=== PATIENT | male | born 1970 ===

== ENCOUNTER 2022-04-25 01:11 | Emergency (ER) | payer OTHER, SELFPAY ==
[2022-04-25 01:27] VITALS: BP 119/80; PULSE 92; RESP 16; TEMP 36.9; O2SAT 99; BMI 23.5
[2022-04-25 02:43] VITALS: BP 123/74; PULSE 90; RESP 16; TEMP 37.2; O2SAT 98
[2022-04-25 03:03] LABS: MANUAL DIFF FLAG NO
[2022-04-25 03:06] LABS: Basophils Percent Auto 0.3 % (0-2); Eosinophils Absolute Auto 0.1 X10*3/uL (0.0-0.4); Eosinophils Percent Auto 1.8 % (0-4); Hematocrit 38.6 % (42.0-52.0); Hemoglobin 13.8 g/dl (14.0-18.0); Imm Gran Abs Auto 0.02 X10*3/uL (0.00-0.03); Imm Gran Pct Auto 0.3 % (0.0-0.4); Lymphocytes Absolute Auto 1.4 X10*3/uL (1.2-4.9); Lymphocytes Percent Auto 22.5 % (20-40); Mean Corpuscular HGB Conc 35.8 g/dl (31.0-36.0); Mean Corpuscular Hemoglobin 32.2 pg (27.0-33.0); Mean Platelet Volume 11.4 fL (9.4-12.4); Monocytes Absolute Auto 0.4 X10*3/uL (0.1-1.2); Monocytes Percent Auto 6.9 % (2-11); Neutrophils Absolute Auto 4.1 x10*3/uL (2.0-8.3); Neutrophils Percent Auto 68.2 % (45-73); Platelet Count 152 X10*3/uL (160-400); Red Blood Count 4.29 X10*6/uL (4.60-5.80); Red Cell Distribution Width 11.9 % (11.0-16.0); White Blood Count 6.1 X10*3/uL (4.8-10.8)
[2022-04-25 03:20] LABS: COVID-19 Test Negative (Negative); IDNOW Serial# 55D5AD1C
[2022-04-25 03:25] LABS: Troponin-I High Sensitivity < 3.5 ng/L (<3.5-35.0)
[2022-04-25 03:33] LABS: Anion Gap 16 (12-20); Blood Urea Nitrogen 18 mg/dL (9-16); Calcium 9.5 mg/dL (8.4-10.2); Carbon Dioxide 22 mmol/L (22-29); Chloride 100 mmol/L (96-108); Creatinine Clr Calc Pharmacy 62.1; Estimated Glomerular Filt Rate 58; Glucose Random 398 mg/dL (60-115); Potassium 4.1 mmol/L (3.3-5.1); Sodium 134 mmol/L (135-145)
[2022-04-25 04:15] VITALS: BP 125/76; PULSE 70; RESP 18; O2SAT 97
--- NOTE | 2022-04-25 05:59 | ED.CHESTPAIN ---
HPI - Chest Pain General Chief Complaint: Chest Pain Stated Complaint: Chest pain Time Seen by Provider: 04/25/22 05:59 Source: patient Mode of arrival: ambulatory Limitations: no limitations History of Present Illness HPI narrative: 51-year-old male who presents emergency department for evaluation of chest pain. The patient states that last night at 22:30 hours he was watching television when he had a gradual onset chest heaviness. He points to his anterior chest when asked to localize the pain. States the pain was worse if he pushes on his chest. He describes the pain is a constant heaviness which was 8/10 at its worst. He denied any radiation of the pain to his neck, jaw, arms or back. He states that he has chronic pain in his upper extremity secondary to diabetic neuropathy. He states that at the time of the onset of his pain he was also thinking about his sister in law who suddenly yesterday. He states that this sudden was very stressful on him and believes this may have triggered an anxiety attack. He did feel short of breath with the chest pain. He denied lightheadedness, dizziness, diaphoresis, nausea, or vomiting associated with the chest pain. complaint: chest pain Onset (ago): hour(s) (8 ) Timing of current episode: constant (Lasted 2-3 hours, resolve spontaneously in the emergency department) Prior episodes: Yes Onset: during rest and other (Onset while thinking about his [id number] the that occurred yesterday) Pain location: left chest and right chest Pain radiation: none Severity: severe Pain scale (0-10): 8 Quality: heaviness Relieving factors: nothing Exacerbating factors: other (Pushing on his chest) Risk Factors Coronary artery disease risk factors: diabetes and hyperlipidemia Related Data Allergies Allergy/AdvReac Type Severity Reaction Status Date / Time No Known Allergies Allergy Unverified 06/15/20 15:57 Review of Systems Review of Systems: Yes all other systems are reviewed and are negative [facility] Past Medical History [facility] Narrative: Past medical history: Diabetes mellitus, hyperlipidemia, diabetic neuropathy, depression, anxiety. Past surgical history left axilla abscess. Social history: He denies tobacco use. He occasionally drinks alcohol. He denies drug use. Social History Social History Advance Directives: No Advance Directives Information Provided: Yes Physical Exam Vital Signs: Vital Signs: Last Vital Signs Temp 98.9 F 04/25/22 02:43 Pulse 70 04/25/22 04:15 Resp 18 04/25/22 04:15 BP 125/76 04/25/22 04:15 Pulse Ox 97 04/25/22 04:15 O2 Del Method 04/25/22 04:15 BMI result Body Mass Index 23.5 Const: General: cooperative and no acute distress Orientation/consciousness: oriented to person and oriented to place Limitations: no limitations HEENT: Head: Yes normal to inspection, Yes normocephalic and Yes atraumatic Ears: external ears normal General nose exam: Normal external nose present Face and sinus: Yes normal facial exam Mouth: Normal oral and palatal mucosa present Throat: Yes posterior oropharynx normal Eyes: General: appearance normal, both eyes and all related structures Pupils: Equal, round and reactive pupils present Neck: Neck: Yes normal visual inspection, Yes no lymphadenopathy, Yes trachea midline and Yes supple Chest: Chest palpation & inspection: normal inspection of the chest and normal palpation of entire chest wall Resp: Effort & Inspection: normal respiratory effort and able to speak in complete sentences Auscultation: clear to auscultation bilaterally Cardio: Rate: regular rate Rhythm: regular rhythm Heart sounds: S1 normal heart sound present, S2 normal heart sound present and no murmurs GI: Inspection: Yes normal to inspection Palpation (GI): Soft to palpation, nontender and no guarding Auscultation: normal bowel sounds : General: Yes no CVA tenderness Back/Spine/Pelvis: Back: no CVA tenderness Skin: General skin exam: no rashes or lesions noted Neuro: General: oriented to person and oriented to place Cranial nerves: Yes CN's II-XII intact bilaterally and Yes Equal, round and reactive pupils present Cognition (Neuro): normal cognition Motor exam (neuro): 5/5 motor strength present throughout Extrem: General: Yes normal to inspection Psych: Appearance: grossly normal Speech and movement: Normal speech and movement present Affect: normal affect Attitude: cooperative Thought process: Normal thought process present Thought content: Normal thought content present Course Course Course Narrative: 51-year-old male who presents emergency department for evaluation of gradual onset of anterior chest pain that occurred at 23:00 hours while he was watching television and while he was also thinking about his [id number]'s sudden, unexpected that occurred yesterday. Patient's cardiac risk factors include diabetes and hyperlipidemia. Patient's pain lasted approximately 2-3 hours and resolved while he was waiting in the emergency department. Vital signs were unremarkable. Physical examination was unremarkable. Laboratory evaluation did reveal an elevated glucose of 398. The patient's high sensitivity troponin I was below detectable limits. Twelve EKG revealed a right bundle-branch block. At this time, I do not think that the patient's pain was caused by myocardial infarction/myocardial injury I did discuss this with him. The patient will be discharged home. He was advised to take his diabetic medications when he gets home and to monitor his point of care glucose throughout the day today. Is also advised to increase his fluid intake. MDM - Chest Pain Medical Records Data Attestation: I reviewed the patient's medical records. Lab Data Attestation: I reviewed the patient's lab results. Result diagrams: 04/25/22 02:58 04/25/22 02:58 Labs: Lab Results 04/25/22 04/25/22 04/25/22 Range/Units 02:58 02:58 02:58 WBC 6.1 (4.8-10.8) X10*3/uL RBC 4.29 L (4.60-5.80) X10*6/uL Hgb 13.8 L (14.0-18.0) g/dl Hct 38.6 L (42.0-52.0) % MCV 90.0 (80.0-98.0) fL MCH 32.2 (27.0-33.0) pg MCHC 35.8 (31.0-36.0) g/dl RDW 11.9 (11.0-16.0) % Plt Count 152 L (160-400) X10*3/uL MPV 11.4 (9.4-12.4) fL Immature Gran % (Auto) 0.3 (0.0-0.4) % Neut % (Auto) 68.2 (45-73) % Lymph % (Auto) 22.5 (20-40) % [place] % (Auto) 6.9 (2-11) % Eos % (Auto) 1.8 (0-4) % Baso % (Auto) 0.3 (0-2) % Lymph # (Auto) 1.4 (1.2-4.9) X10*3/uL [place] # (Auto) 0.4 (0.1-1.2) X10*3/uL Eos # (Auto) 0.1 (0.0-0.4) X10*3/uL Baso # (Auto) 0.0 (0.0-0.2) X10*3/uL Abs Immat Gran (auto) 0.02 (0.00-0.03) X10*3/uL Absolute Neuts (auto) 4.1 (2.0-8.3) x10*3/uL Absolute Nucleated RBC 0.000 (0.0-0.012) X10*3/uL Nucleated RBC % (auto) 0.0 (0.0-0.2) /100WBC Sodium 134 L (135-145) mmol/L Potassium 4.1 (3.3-5.1) mmol/L Chloride 100 (96-108) mmol/L Carbon Dioxide 22 (22-29) mmol/L Anion Gap 16 (12-20) BUN 18 H (9-16) mg/dL Creatinine 1.30 (0.5-1.4) mg/dL Estim Creat Clear Calc 62.1 Estimated GFR 58 Random Glucose 398 H* (60-115) mg/dL Calcium 9.5 (8.4-10.2) mg/dL Troponin I High Sens < 3.5 (<3.5-35.0) ng/L COVID-19 ([facility]) (Negative) COVID-19 Clin Com 04/25/22 Range/Units 02:58 WBC (4.8-10.8) X10*3/uL RBC (4.60-5.80) X10*6/uL Hgb (14.0-18.0) g/dl Hct (42.0-52.0) % MCV (80.0-98.0) fL MCH (27.0-33.0) pg MCHC (31.0-36.0) g/dl RDW (11.0-16.0) % Plt Count (160-400) X10*3/uL MPV (9.4-12.4) fL Immature Gran % (Auto) (0.0-0.4) % Neut % (Auto) (45-73) % Lymph % (Auto) (20-40) % [place] % (Auto) (2-11) % Eos % (Auto) (0-4) % Baso % (Auto) (0-2) % Lymph # (Auto) (1.2-4.9) X10*3/uL [place] # (Auto) (0.1-1.2) X10*3/uL Eos # (Auto) (0.0-0.4) X10*3/uL Baso # (Auto) (0.0-0.2) X10*3/uL Abs Immat Gran (auto) (0.00-0.03) X10*3/uL Absolute Neuts (auto) (2.0-8.3) x10*3/uL Absolute Nucleated RBC (0.0-0.012) X10*3/uL Nucleated RBC % (auto) (0.0-0.2) /100WBC Sodium (135-145) mmol/L Potassium (3.3-5.1) mmol/L Chloride (96-108) mmol/L Carbon Dioxide (22-29) mmol/L Anion Gap (12-20) BUN (9-16) mg/dL Creatinine (0.5-1.4) mg/dL Estim Creat Clear Calc Estimated GFR Random Glucose (60-115) mg/dL Calcium (8.4-10.2) mg/dL Troponin I High Sens (<3.5-35.0) ng/L COVID-19 ([facility]) Negative (Negative) COVID-19 Clin Com See Note ECG Data ECG #1: Attestation: I personally reviewed and interpreted this ECG as follows: Interpretation: 0117: Normal sinus rhythm with a rate of 90, normal IA interval, prolonged QRS duration of 134 milliseconds prolonged QTC duration of 484 milliseconds, right bundle-branch block, Q-wave in lead 3, inverted T-wave lead 2, no ST segment elevation, no ST segment depression, no PACs, no PVCs, no old EKG for comparison. Discharge Plan Discharge Clinical Impression: Chest pain Patient Disposition: Home, Self-Care Instructions: Chest Wall Pain (ED) Additional Instructions: Your laboratory evaluation revealed an elevated glucose (sugar) of 398. When you get home you should take your diabetes medications and monitor your glucose throughout the day today. You also increase your fluid intake and that should bring down your glucose. Your blood work was otherwise unremarkable. Your troponin (a marker of heart damage/heart attack) was below detectable limits which is reassuring. At this time, I do not think that your chest pain was secondary to heart attack but was more likely caused by pain in the muscles or joints of your chest. Also, I think that you may have had anxiety as well which major pain worse. Follow-up with your doctor in 2 days. Please return to the emergency department if your symptoms get worse or if you develop any symptoms that are concerning to you.
--- NOTE | 2022-04-25 14:27 | ECG_ITS ---
Test Reason : CHEST PAIN Blood Pressure : / mmHG Vent. Rate : 090 BPM Atrial Rate : 090 BPM P-R Int : 140 ms QRS Dur : 134 ms QT Int : 396 ms P-R-T Axes : 038 -69 016 degrees QTc Int : 484 ms Normal sinus rhythm Right bundle branch block Left anterior fascicular block Bifascicular block Abnormal ECG When compared with ECG of 11-MAY-2019 15:14, Right bundle branch block is now Present Referred By: Wilfredo Edmond Electronically Signed By:ERIK PANCHAL
== END 2022-04-25 06:31 | disposition home or self-care (01) ==
PROVIDERS: Emergency Provider Emergency Medicine Emergency Medical Services
DX: R07.89 Other chest pain (principal); Z20.822 Contact with and (suspected) exposure to COVID-19; Z79.899 Other long term (current) drug therapy
CPT/HCPCS: 36415; 80048; 84484; 85025; 87635; 93005; 99283; 99284

== ENCOUNTER 2022-11-07 14:56 | Emergency (ER) | payer OTHER, SELFPAY ==
--- NOTE | 2022-11-07 15:21 | ECG_ITS ---
Test Reason : not feeling well Blood Pressure : / mmHG Vent. Rate : 096 BPM Atrial Rate : 096 BPM P-R Int : 136 ms QRS Dur : 142 ms QT Int : 406 ms P-R-T Axes : 028 -69 034 degrees QTc Int : 512 ms Normal sinus rhythm Right bundle branch block Left anterior fascicular block Bifascicular block Abnormal ECG When compared with ECG of 25-APR-2022 01:17, No significant change was found Referred By: Mervin Mcpherson Electronically Signed By:AYO DE SANTIAGO MD
[2022-11-07 15:29] VITALS: BP 135/95; PULSE 97; RESP 18; TEMP 36.6; O2SAT 99; BMI 23.1
--- NOTE | 2022-11-07 15:32 | ED.GENADULT ---
HPI - General Adult General Chief complaint: General Medical <MORIS Dickerson - Last Filed: 11/07/22 15:34> Stated complaint: not feeling well pain r arm <MORIS Dickerson - Last Filed: 11/07/22 15:34> Time Seen by Provider: 11/07/22 23:04 <MORIS Dickerson - Last Filed: 11/07/22 15:34> Source: patient <Freddy Camarillo MD - Last Filed: 11/07/22 23:41> Mode of arrival: ambulatory <Freddy Camarillo MD - Last Filed: 11/07/22 23:41> Limitations: no limitations <Freddy Camarillo MD - Last Filed: 11/07/22 23:41> History of Present Illness HPI narrative: Patient diabetic comes in with nonspecific complaints for fecal say dizziness abdominal pain when he lays on the right side with chronic abdominal discomfort feels bloated all the time slight nausea no vomiting or diarrhea no fever or chills blood sugar well controlled patient does have increased anxiety, never had colonoscopy yet, Due in 01/19 worried about colon cancer <Freddy Camarillo MD - Last Filed: 11/07/22 23:41> Related Data Home medications: Previous Rx's Medication Instructions Recorded dicyclomine 20 mg tablet 20 mg PO TID PRN abdominal pain 11/07/22 #20 tabs lorazepam 1 mg tablet (Ativan) 1 mg PO BEDTIME PRN sleep #10 tabs 11/07/22 <MORIS Dickerson - Last Filed: 11/07/22 15:34> Allergies/adverse reactions: Allergies Allergy/AdvReac Type Severity Reaction Status Date / Time No Known Allergies Allergy Unverified 06/15/20 15:57 <MORIS Dickerson - Last Filed: 11/07/22 15:34> Review of Systems Review of Systems: Yes all other systems are reviewed and are negative <Freddy Camarillo MD - Last Filed: 11/07/22 23:41> PMFSH Social History Social History: Social History Alcohol intake: never Use of substances other than those prescribed or required for medical reasons: No Advance Directives: No Advance Directives Information Provided: No <MORIS Dickerson - Last Filed: 11/07/22 15:34> Physical Exam ED Vital Signs: Vital Signs - 24 hr 11/07/22 15:29 11/07/22 22:21 Temperature 97.9 F Pulse Rate 97 81 Respiratory Rate 18 18 Blood Pressure 135/95 H 140/82 H Pulse Oximetry 99 98 Oxygen Delivery Method Room Air Room Air BMI result Body Mass Index 23.1 <MORIS Dickerson - Last Filed: 11/07/22 15:34> Vital Signs - 24 hr 11/07/22 15:29 11/07/22 22:21 Temperature 97.9 F Pulse Rate 97 81 Respiratory Rate 18 18 Blood Pressure 135/95 H 140/82 H Pulse Oximetry 99 98 Oxygen Delivery Method Room Air Room Air BMI result Body Mass Index 23.1 <Freddy Camarillo MD - Last Filed: 11/07/22 23:41> Appearance: Alert. Oriented X3. No acute distress. Anxious Eyes: PERRLA, No Nystagmus ENT: Pharynx normal. Oral Mucosa moist Neck: Normal inspection. Neck supple. CVS: Normal heart rate and rhythm. Pulses normal. Respiratory: No respiratory distress. Equal air entry bilateral, no wheezing/rales/rhonchi Abdomen: Soft , mild tenderness diffuse Bowel sounds are present, no mass palpable, no CVA tenderness Skin: Skin warm and dry. Normal skin color. Normal skin turgor. Extremities: No lower extremity edema. No calf tenderness Neuro: Oriented X 3. No motor deficit. <Freddy Camarillo MD - Last Filed: 11/07/22 23:41> Course Course Course Narrative: This is an RME: Additional HPI, ROS, PE not included below will be deferred to primary provider. 52-year-old male presents with right arm pain, dizziness described as room spinning, abdominal pain, nausea times a few days worsening. Review of systems overwhelmingly positive. Physical examination benign. Neuro nonfocal. NIH stroke scale 0. Plan basic labs, orthostatic vital signs, dizziness <MORIS Dicekrson - Last Filed: 11/07/22 15:34> Medications Administered Discontinued Medications Generic Name Dose Route Start Last Admin Trade Name Freq PRN Reason Stop Dose Admin Dicyclomine HCl 20 mg 11/07/22 23:19 11/07/22 23:23 Dicyclomine Hcl 10 Mg Capsule PO 11/07/22 23:20 20 mg ONCE ONE Administration <MORIS Dickerson - Last Filed: 11/07/22 15:34> Medications Administered Discontinued Medications Generic Name Dose Route Start Last Admin Trade Name Freq PRN Reason Stop Dose Admin Dicyclomine HCl 20 mg 11/07/22 23:19 11/07/22 23:23 Dicyclomine Hcl 10 Mg Capsule PO 11/07/22 23:20 20 mg ONCE ONE Administration <Freddy Camarillo MD - Last Filed: 11/07/22 23:41> Medical Decision Making Medical Decision Making [facility] Narrative: Patient's anxiety with diffuse abdominal discomfort labs are stable likely diabetic gastroparesis discharge patient home on dicyclomine and Ativan for anxiety and sleep <Freddy Camarillo MD - Last Filed: 11/07/22 23:41> Lab Data [facility] Lab Attestation statement: I reviewed the patient's lab results. <Freddy Camarillo MD - Last Filed: 11/07/22 23:41> Result Diagrams: 11/07/22 16:13 11/07/22 16:13 <MORIS Dickerson - Last Filed: 11/07/22 15:34> Labs: Lab Results 11/07/22 11/07/22 11/07/22 Range/Units 16:13 16:13 16:13 WBC 5.1 (4.8-10.8) X10*3/uL RBC 5.10 (4.60-5.80) X10*6/uL Hgb 15.9 (14.0-18.0) g/dl Hct 46.3 (42.0-52.0) % MCV 90.8 (80.0-98.0) fL MCH 31.2 (27.0-33.0) pg MCHC 34.3 (31.0-36.0) g/dl RDW 12.0 (11.0-16.0) % Plt Count 150 L (160-400) X10*3/uL MPV 11.6 (9.4-12.4) fL Immature Gran % (Auto) 0.0 (0.0-0.4) % Neut % (Auto) 71.8 (45-73) % Lymph % (Auto) 19.0 L (20-40) % [place] % (Auto) 6.3 (2-11) % Eos % (Auto) 2.7 (0-4) % Baso % (Auto) 0.2 (0-2) % Lymph # (Auto) 1.0 L (1.2-4.9) X10*3/uL [place] # (Auto) 0.3 (0.1-1.2) X10*3/uL Eos # (Auto) 0.1 (0.0-0.4) X10*3/uL Baso # (Auto) 0.0 (0.0-0.2) X10*3/uL Abs Immat Gran (auto) 0.00 (0.00-0.03) X10*3/uL Absolute Neuts (auto) 3.7 (2.0-8.3) x10*3/uL Absolute Nucleated RBC 0.000 (0.0-0.012) X10*3/uL Nucleated RBC % (auto) 0.0 (0.0-0.2) /100WBC Sodium 145 (135-145) mmol/L Potassium 3.5 (3.3-5.1) mmol/L Chloride 107 (96-108) mmol/L Carbon Dioxide 26 (22-29) mmol/L Anion Gap 16 (12-20) BUN 24 H (9-16) mg/dL Creatinine 1.14 (0.5-1.4) mg/dL Estim Creat Clear Calc 67.6 Estimated GFR > 60 POC Glucose (60-115) mg/dL Random Glucose 202 H (60-115) mg/dL Calcium 8.7 D (8.4-10.2) mg/dL Magnesium 2.0 (1.6-2.6) mg/dL Total Bilirubin 0.8 (0.0-1.0) mg/dL AST 41 H (5-37) U/L ALT 91 H (0-40) U/L Alkaline Phosphatase 216 H (39-117) U/L Total Protein 6.9 (6.5-8.0) g/dL Albumin 4.2 (3.5-5.0) g/dL Lipase 16 (8-78) U/L COVID-19 ([facility]) Negative (Negative) COVID-19 Clin Com See Note 11/07/22 11/07/22 Range/Units 20:19 22:49 WBC (4.8-10.8) X10*3/uL RBC (4.60-5.80) X10*6/uL Hgb (14.0-18.0) g/dl Hct (42.0-52.0) % MCV (80.0-98.0) fL MCH (27.0-33.0) pg MCHC (31.0-36.0) g/dl RDW (11.0-16.0) % Plt Count (160-400) X10*3/uL MPV (9.4-12.4) fL Immature Gran % (Auto) (0.0-0.4) % Neut % (Auto) (45-73) % Lymph % (Auto) (20-40) % [place] % (Auto) (2-11) % Eos % (Auto) (0-4) % Baso % (Auto) (0-2) % Lymph # (Auto) (1.2-4.9) X10*3/uL [place] # (Auto) (0.1-1.2) X10*3/uL Eos # (Auto) (0.0-0.4) X10*3/uL Baso # (Auto) (0.0-0.2) X10*3/uL Abs Immat Gran (auto) (0.00-0.03) X10*3/uL Absolute Neuts (auto) (2.0-8.3) x10*3/uL Absolute Nucleated RBC (0.0-0.012) X10*3/uL Nucleated RBC % (auto) (0.0-0.2) /100WBC Sodium (135-145) mmol/L Potassium (3.3-5.1) mmol/L Chloride (96-108) mmol/L Carbon Dioxide (22-29) mmol/L Anion Gap (12-20) BUN (9-16) mg/dL Creatinine (0.5-1.4) mg/dL Estim Creat Clear Calc Estimated GFR POC Glucose 114 62 (60-115) mg/dL Random Glucose (60-115) mg/dL Calcium (8.4-10.2) mg/dL Magnesium (1.6-2.6) mg/dL Total Bilirubin (0.0-1.0) mg/dL AST (5-37) U/L ALT (0-40) U/L Alkaline Phosphatase (39-117) U/L Total Protein (6.5-8.0) g/dL Albumin (3.5-5.0) g/dL Lipase (8-78) U/L COVID-19 ([facility]) (Negative) COVID-19 Clin Com <MORIS Dickerson - Last Filed: 11/07/22 15:34> Lab Results 11/07/22 11/07/22 11/07/22 Range/Units 16:13 16:13 16:13 WBC 5.1 (4.8-10.8) X10*3/uL RBC 5.10 (4.60-5.80) X10*6/uL Hgb 15.9 (14.0-18.0) g/dl Hct 46.3 (42.0-52.0) % MCV 90.8 (80.0-98.0) fL MCH 31.2 (27.0-33.0) pg MCHC 34.3 (31.0-36.0) g/dl RDW 12.0 (11.0-16.0) % Plt Count 150 L (160-400) X10*3/uL MPV 11.6 (9.4-12.4) fL Immature Gran % (Auto) 0.0 (0.0-0.4) % Neut % (Auto) 71.8 (45-73) % Lymph % (Auto) 19.0 L (20-40) % [place] % (Auto) 6.3 (2-11) % Eos % (Auto) 2.7 (0-4) % Baso % (Auto) 0.2 (0-2) % Lymph # (Auto) 1.0 L (1.2-4.9) X10*3/uL [place] # (Auto) 0.3 (0.1-1.2) X10*3/uL Eos # (Auto) 0.1 (0.0-0.4) X10*3/uL Baso # (Auto) 0.0 (0.0-0.2) X10*3/uL Abs Immat Gran (auto) 0.00 (0.00-0.03) X10*3/uL Absolute Neuts (auto) 3.7 (2.0-8.3) x10*3/uL Absolute Nucleated RBC 0.000 (0.0-0.012) X10*3/uL Nucleated RBC % (auto) 0.0 (0.0-0.2) /100WBC Sodium 145 (135-145) mmol/L Potassium 3.5 (3.3-5.1) mmol/L Chloride 107 (96-108) mmol/L Carbon Dioxide 26 (22-29) mmol/L Anion Gap 16 (12-20) BUN 24 H (9-16) mg/dL Creatinine 1.14 (0.5-1.4) mg/dL Estim Creat Clear Calc 67.6 Estimated GFR > 60 POC Glucose (60-115) mg/dL Random Glucose 202 H (60-115) mg/dL Calcium 8.7 D (8.4-10.2) mg/dL Magnesium 2.0 (1.6-2.6) mg/dL Total Bilirubin 0.8 (0.0-1.0) mg/dL AST 41 H (5-37) U/L ALT 91 H (0-40) U/L Alkaline Phosphatase 216 H (39-117) U/L Total Protein 6.9 (6.5-8.0) g/dL Albumin 4.2 (3.5-5.0) g/dL Lipase 16 (8-78) U/L COVID-19 ([facility]) Negative (Negative) COVID-19 Clin Com See Note 11/07/22 11/07/22 Range/Units 20:19 22:49 WBC (4.8-10.8) X10*3/uL RBC (4.60-5.80) X10*6/uL Hgb (14.0-18.0) g/dl Hct (42.0-52.0) % MCV (80.0-98.0) fL MCH (27.0-33.0) pg MCHC (31.0-36.0) g/dl RDW (11.0-16.0) % Plt Count (160-400) X10*3/uL MPV (9.4-12.4) fL Immature Gran % (Auto) (0.0-0.4) % Neut % (Auto) (45-73) % Lymph % (Auto) (20-40) % [place] % (Auto) (2-11) % Eos % (Auto) (0-4) % Baso % (Auto) (0-2) % Lymph # (Auto) (1.2-4.9) X10*3/uL [place] # (Auto) (0.1-1.2) X10*3/uL Eos # (Auto) (0.0-0.4) X10*3/uL Baso # (Auto) (0.0-0.2) X10*3/uL Abs Immat Gran (auto) (0.00-0.03) X10*3/uL Absolute Neuts (auto) (2.0-8.3) x10*3/uL Absolute Nucleated RBC (0.0-0.012) X10*3/uL Nucleated RBC % (auto) (0.0-0.2) /100WBC Sodium (135-145) mmol/L Potassium (3.3-5.1) mmol/L Chloride (96-108) mmol/L Carbon Dioxide (22-29) mmol/L Anion Gap (12-20) BUN (9-16) mg/dL Creatinine (0.5-1.4) mg/dL Estim Creat Clear Calc Estimated GFR POC Glucose 114 62 (60-115) mg/dL Random Glucose (60-115) mg/dL Calcium (8.4-10.2) mg/dL Magnesium (1.6-2.6) mg/dL Total Bilirubin (0.0-1.0) mg/dL AST (5-37) U/L ALT (0-40) U/L Alkaline Phosphatase (39-117) U/L Total Protein (6.5-8.0) g/dL Albumin (3.5-5.0) g/dL Lipase (8-78) U/L COVID-19 ([facility]) (Negative) COVID-19 Clin Com <Freddy Camarillo MD - Last Filed: 11/07/22 23:41> Discharge Plan Discharge Clinical Impression: Diabetic gastroparesis, Anxiety <MORIS Dickerson - Last Filed: 11/07/22 15:34> Patient Disposition: Home, Self-Care <MORIS Dickerson - Last Filed: 11/07/22 15:34> Instructions: Diabetic Gastroparesis (DC), Anxiety (ED) <MORIS Dickerson - Last Filed: 11/07/22 15:34> Additional Instructions: Continue her diabetic medication as prescribed Dicyclomine for increased abdominal discomfort Follow-up with PCP <MORIS Dickerson - Last Filed: 11/07/22 15:34> Prescriptions: New dicyclomine 20 mg tablet 20 mg PO TID PRN (Reason: abdominal pain) Qty: 20 0RF lorazepam [Ativan] 1 mg tablet 1 mg PO BEDTIME PRN (Reason: sleep) Qty: 10 0RF <MORIS Dickerson - Last Filed: 11/07/22 15:34>
[2022-11-07 16:19] LABS: MANUAL DIFF FLAG NO
[2022-11-07 16:22] LABS: Basophils Percent Auto 0.2 % (0-2); Eosinophils Absolute Auto 0.1 X10*3/uL (0.0-0.4); Eosinophils Percent Auto 2.7 % (0-4); Hematocrit 46.3 % (42.0-52.0); Hemoglobin 15.9 g/dl (14.0-18.0); Mean Corpuscular HGB Conc 34.3 g/dl (31.0-36.0); Mean Corpuscular Hemoglobin 31.2 pg (27.0-33.0); Mean Corpuscular Volume 90.8 fL (80.0-98.0); Mean Platelet Volume 11.6 fL (9.4-12.4); Monocytes Absolute Auto 0.3 X10*3/uL (0.1-1.2); Monocytes Percent Auto 6.3 % (2-11); Neutrophils Absolute Auto 3.7 x10*3/uL (2.0-8.3); Neutrophils Percent Auto 71.8 % (45-73); Platelet Count 150 X10*3/uL (160-400); White Blood Count 5.1 X10*3/uL (4.8-10.8)
[2022-11-07 16:39] LABS: Alanine Aminotransferase 91 U/L (0-40); Albumin Level 4.2 g/dL (3.5-5.0); Alkaline Phosphatase 216 U/L (39-117); Anion Gap 16 (12-20); Aspartate Amino Transferase 41 U/L (5-37); Bilirubin Total 0.8 mg/dL (0.0-1.0); Blood Urea Nitrogen 24 mg/dL (9-16); Calcium 8.7 mg/dL (8.4-10.2); Carbon Dioxide 26 mmol/L (22-29); Chloride 107 mmol/L (96-108); Creatinine Clr Calc Pharmacy 67.6; Estimated Glomerular Filt Rate > 60; Glucose Random 202 mg/dL (60-115); Lipase 16 U/L (8-78); Potassium 3.5 mmol/L (3.3-5.1); Sodium 145 mmol/L (135-145); Total Protein 6.9 g/dL (6.5-8.0)
[2022-11-07 16:52] LABS: COVID-19 Test Negative (Negative); IDNOW Serial# BCCEAD1C
[2022-11-07 20:23] LABS: Glucose, Whole Blood 114 mg/dL (60-115)
[2022-11-07 22:21] VITALS: BP 140/82; PULSE 81; RESP 18; O2SAT 98
--- NOTE | 2022-11-07 22:50 | PC.NURSE ---
PT reports feeling low blood sugar, PO fluids and sandwich given.
[2022-11-07 22:53] LABS: Glucose, Whole Blood 62 mg/dL (60-115)
[2022-11-07] MEDS: Dicyclomine HCl 10 MG CAPSULE 20 MG PO (23:23)
== END 2022-11-07 23:45 | disposition home or self-care (01) ==
PROVIDERS: Physician Assistant; Emergency Provider Internal Medicine
DX: E11.43 Type 2 diabetes mellitus with diabetic autonomic (poly)neuropathy (principal); F41.9 Anxiety disorder, unspecified; Z20.822 Contact with and (suspected) exposure to COVID-19
CPT/HCPCS: 80053; 82947; 83690; 83735; 85025; 87635; 93005; 99283; 99284

== ENCOUNTER 2023-06-18 19:17 | Emergency (ER) | payer OTHER, SELFPAY ==
--- NOTE | ~2023-06-18 | XR_ITS ---
EXAMINATION: XR HIP, LEFT CLINICAL INFORMATION: Left hip pain. COMPARISON: CT abdomen/pelvis 02/05/2017. TECHNIQUE: Two views of the left hip. FINDINGS: No acute fracture or subluxation. Mild joint space narrowing, subcortical sclerosis and minimal spurring in the bilateral hips. Pelvic rim is maintained. SI joints are symmetric. Pelvic phleboliths are seen. No significant soft tissue abnormality. XR/XR hip LT w PEL1V IMPRESSION: 1. No acute fracture or subluxation. 2. Mild osteoarthritis of the bilateral hips.
[2023-06-18 19:56] VITALS: BP 128/73; PULSE 95; RESP 18; TEMP 37.3; O2SAT 97; BMI 25.0
--- NOTE | 2023-06-18 19:56 | ED_ITS ---
HPI - General Adult General Chief complaint: Back Pain/Injury Stated complaint: back pain, no injury Time Seen by Provider: 06/18/23 23:05 Source: patient, RN notes reviewed and old records reviewed Mode of arrival: ambulatory History of Present Illness HPI narrative: 52 year old M w/no sig PMHx c/o L hip pain radiating to L low back and down LLE x few weeks. Pain worse at night. Admits to ass[facility]. Denies injury/fall/trauma, incontinence/retention, fever, chills, hematuria, dysuria, abd pain. Onset (ago): day(s) Related Data Previous Rx's Medication Instructions Recorded dicyclomine 20 mg tablet 20 mg PO TID PRN abdominal pain 11/07/22 #20 tabs lorazepam 1 mg tablet (Ativan) 1 mg PO BEDTIME PRN sleep #10 tabs 11/07/22 acetaminophen 500 mg tablet 500 mg PO Q6H PRN fever or pain 06/18/23 (Tylenol Extra Strength) #14 tabs cyclobenzaprine 5 mg tablet 5 mg PO Q8H PRN pain (scale score 06/18/23 7-10) 5 days #14 tabs lidocaine 5 % topical patch 1 patch topical DAILY PRN pain #30 06/18/23 (Lidoderm) ea naproxen 500 mg tablet 500 mg PO BID PRN pain 10 days #20 06/18/23 tabs Allergies Allergy/AdvReac Type Severity Reaction Status Date / Time No Known Allergies Allergy Unverified 06/15/20 15:57 Review of Systems Review of Systems: Constitutional: No Fever, No Chills ENT/Mouth: No Ear Pain, No Nasal Congestion, No sore throat, No Rhinorrhea, No Swallowing Difficulty Cardiovascular: No Chest Pain, No SOB Respiratory: No Cough, No Sputum Gastrointestinal: No Nausea, No Vomiting, No Diarrhea, No Constipation, No Abdominal pain Genitourinary: No Dysuria, No Urinary Frequency, No Hematuria, No Urinary Incontinence/retention, No Flank Pain Musculoskeletal: + joint pain, No Myalgias, No Joint Swelling Skin: No Skin Lesions, No rash Neuro: No Weakness, No Numbness, No Paresthesias Yes all other systems are reviewed and are negative Constitutional: Constitutional: Reports as per HPI Neurologic: Denies Sensory deficit (Neuro) [facility] Past Medical History Attestation statement: The following information was validated with the patient. Source: old records reviewed Social History Social History Alcohol intake: never Advance Directives: No Advance Directives Information Provided: No Physical Exam ED Vital Signs: Vital Signs - 24 hr 06/18/23 19:56 06/18/23 21:32 06/18/23 23:44 Temperature 99.2 F 98.3 F 97.4 F Pulse Rate 95 78 77 Respiratory Rate 18 16 16 Blood Pressure 128/73 128/78 138/92 H Pulse Oximetry 97 98 97 Oxygen Delivery Method Room Air Room Air Room Air BMI result Body Mass Index 25.0 Const General: cooperative, healthy appearing and no acute distress Orientation/consciousness: patient oriented x3 Limitations: no limitations HENMT Head: Yes normal to inspection and Yes atraumatic Ears: hearing grossly normal bilaterally General nose exam: Normal external nose present Face and sinus: Yes normal facial exam Eyes General: appearance normal, both eyes and all related structures EOM: EOMs intact bilaterally Neck Neck: Yes normal visual inspection and Yes no meningeal signs Resp Effort & Inspection: normal respiratory effort and no respiratory distress Cardio Rate: regular rate Peripheral pulses: Peripheral pulses 2+ throughout GI Inspection: Yes normal to inspection Palpation (GI): Soft to palpation, nontender, no guarding and not rigid General: Yes no CVA tenderness Back/Spine/Pelvis Other: No midline cervical/thoracic/lumbar spinous tenderness/step-off or deformity. +L lower lumbar MSK/L hip ttp. Hip/pelvis w/o deformity. pelvis stable Back: no CVA tenderness Skin Rashes: no rashes Wounds: no wounds Neuro Other: Strength intact throughout. No saddle anesthesia. Sensation intact to light touch. Neurovascular intact distally General: patient oriented x3, gait normal, tone normal, moves all extremities and no meningeal signs Cranial nerves: Yes CN's II-XII intact bilaterally Gait exam (Neuro): Normal gait present Motor exam (neuro): 5/5 motor strength present throughout Sensory Exam: No Sensory deficit (Neuro) Extrem General: Yes normal to inspection Course Course Course Narrative: This is a rapid medical exam: Additional HPI, ROS, PE not included below will be deferred to primary provider. Patient is a 52-year-old male with history of DM presenting to the emergency department with complaint of pain which began in his leg one week ago, then 2 days ago began radiating to his left hip/lower back. Denies any fevers. Denies any fall or other trauma. Denies any urinary symptoms. Plan: x-ray hip/pelvis XR hip LT w PEL1V IMPRESSION: 1. No acute fracture or subluxation. 2. Mild osteoarthritis of the bilateral hips. Results discussed with patient including worrisome signs and symptoms and strict return precautions, and when to return to the emergency department. They verbalized understanding and feel safe for discharge at this time. Medications Administered Discontinued Medications Generic Name Dose Route Start Last Admin Trade Name Freq PRN Reason Stop Dose Admin Ketorolac Tromethamine 30 mg 06/18/23 23:27 06/18/23 23:39 Ketorolac Tromethamine 30 Mg/Ml Vial IM 06/18/23 23:28 30 mg ONCE ONE Administration Medical Decision Making Medical Decision Making MDM Narrative: 52 year old M w/no sig PMHx c/o L hip pain radiating to L low back and down LLE x few weeks. On exam VSS, NAD, nontoxic appearing, abdomen soft nontender, no midline spinous ttp, +L hip/L low back MSK ttp. No red flag sx. ambulating w/ steady gait. On exam vital signs stable, NAD, nontoxic appearing, no midline spinous tenderness throughout, nor thoughts symptoms, ambulating with steady gait. Concern for arthritis vs MSK pain/strain for sciatica or herniated disc. Unlikely fracture, cauda equina/cord compression, epidural abscess Plan: X-rays ordered in triage, pain control Please refer to course for remaining clinical decision making, interpretation of labs/imaging results, and discussions with consultants and/or family members. Differential Diagnosis Differential Diagnoses: The differential diagnosis associated with the presentation includes As above Radiology Impression Discussion of test interpretation with radiology: I have reviewed the radiologist's reading. External Record Review External record reviewed: Inpatient record, Office record, Outpatient record, Prior outpatient labs, Prior outpatient radiology, Primary care record and Outside ED record Tests considered The following testing was considered but not selected: As above Prescription Management I considered prescription management with: Pain Medication Discharge Plan Discharge Clinical Impression: Sciatica, Hip osteoarthritis Patient Disposition: Home, Self-Care Instructions: Osteoarthritis (DC), Sciatica (ED) Additional Instructions: your x-ray shows osteoarthritis of your hips Your pain is likely musculoskeletal Flexeril is a muscle relaxer, take at night as it makes you drowsy, do not drive, drink alcohol, or operate machinery while taking it Naproxen as an anti-inflammatory / pain medication, take with food Lidoderm patches are numbing patches, apply to painful area In addition take Tylenol at home If symptoms persist or worsen, pain becomes unbearable, you developed urinary retention or incontinence, or weakness return to the ED Prescriptions: New acetaminophen [Tylenol Extra Strength] 500 mg tablet 500 mg PO Q6H PRN (Reason: fever or pain) Qty: 14 0RF lidocaine [Lidoderm] 5 % adhesive patch,medicated 1 patch topical DAILY MDD remove after 12 hours PRN (Reason: pain) Qty: 30 0RF Rx Instructions: leave on most painful area for up to 12 hrs naproxen 500 mg tablet 500 mg PO BID PRN (Reason: pain) 10 Days Qty: 20 0RF cyclobenzaprine 5 mg tablet 5 mg PO Q8H PRN (Reason: pain (scale score 7-10)) 5 Days Qty: 14 0RF No Action dicyclomine 20 mg tablet 20 mg PO TID PRN (Reason: abdominal pain) Qty: 20 0RF lorazepam [Ativan] 1 mg tablet 1 mg PO BEDTIME PRN (Reason: sleep) Qty: 10 0RF Referrals: Physician,Unknown J [Primary Care Provider] - Interventions: ED Discharge Assessment Last Done: 06/18/23 23:45 Discharge Date/Time: 06/18/23 23:46
[2023-06-18 21:32] VITALS: BP 128/78; PULSE 78; RESP 16; TEMP 36.8; O2SAT 98
[2023-06-18] MEDS: Ketorolac Tromethamine 30 MG/ML VIAL IM (23:39)
[2023-06-18 23:44] VITALS: BP 138/92; PULSE 77; RESP 16; TEMP 36.3; O2SAT 97
== END 2023-06-18 23:46 | disposition home or self-care (01) ==
PROVIDERS: Emergency Provider Emergency Medicine
DX: M54.42 Lumbago with sciatica, left side (principal); M25.552 Pain in left hip; Z79.899 Other long term (current) drug therapy
CPT/HCPCS: 73502; 96372; 99283; 99284; J1885

== ENCOUNTER 2023-07-04 22:20 | Emergency (ER) | payer OTHER, SELFPAY ==
[2023-07-04 22:26] VITALS: BP 140/94; PULSE 88; RESP 16; O2SAT 99; BMI 28.0
[2023-07-04 22:49] VITALS: BP 157/92; PULSE 72; RESP 19; O2SAT 95
--- NOTE | 2023-07-04 22:54 | PC.NURSE ---
Pt brought in by unresponsive, diaphoretic, POC 24. #18 iv placed in L-ac,pt given d50, repeat glucose 198. Pt started vomiting, turned on side, becoming more arousable asking for . at bedside, bed change completed, pt sat up in bed. VSS at this time. Repeat poc at 2300
--- NOTE | 2023-07-04 22:59 | ED.GENADULT ---
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 As per the patient is diabetic and took approximately 40 units of Lantus prior to leaving the house and going to a [place]. The thinks that he may have consumed alcohol there but denies patient engages in drug use, she states that others at the [facility] called her to say that he did not look well. Related Data Previous Rx's Medication Instructions Recorded dicyclomine 20 mg tablet 20 mg PO TID PRN abdominal pain 11/07/22 #20 tabs lorazepam 1 mg tablet (Ativan) 1 mg PO BEDTIME PRN sleep #10 tabs 11/07/22 acetaminophen 500 mg tablet 500 mg PO Q6H PRN fever or pain 06/18/23 (Tylenol Extra Strength) #14 tabs cyclobenzaprine 5 mg tablet 5 mg PO Q8H PRN pain (scale score 06/18/23 7-10) 5 days #14 tabs lidocaine 5 % topical patch 1 patch topical DAILY PRN pain #30 06/18/23 (Lidoderm) ea naproxen 500 mg tablet 500 mg PO BID PRN pain 10 days #20 06/18/23 tabs Allergies Allergy/AdvReac Type Severity Reaction Status Date / Time No Known Allergies Allergy Verified 07/04/23 22:26 Review of Systems Review of Systems: Yes Unobtainable due to mental condition PMFSH Past Medical History Source: nursing notes reviewed Social History Social History Alcohol intake: current Use of substances other than those prescribed or required for medical reasons: No Advance Directives: No Advance Directives Information Provided: Yes Physical Exam ED Vital Signs: Vital Signs - 24 hr 07/04/23 22:26 07/04/23 22:49 07/04/23 23:20 Temperature 97.7 F Pulse Rate 88 72 Respiratory Rate 16 19 Blood Pressure 140/94 H 157/92 H Pulse Oximetry 99 95 Oxygen Delivery Method Room Air Room Air 07/05/23 00:44 07/05/23 01:57 Temperature 94.5 F L 98.0 F Pulse Rate 77 75 Respiratory Rate 16 16 Blood Pressure 163/92 H 136/82 Pulse Oximetry 95 97 Oxygen Delivery Method Room Air BMI result Body Mass Index 28.0 VITAL SIGNS: Reviewed. GENERAL: Well developed, well nourished, in no acute distress. HEAD: Normocephalic/atraumatic EYES: PERRLA, EOMI EARS: Ext canals without abnormality, TMs non-bulging and non-erythematous NOSE: Nares patent bilateral OROPHARYNX: no oral lesions noted NECK: Supple, no adenopathy LUNGS: Normal breath sounds. No adventitious sounds or accessory muscle use. SpO2<97> CARDIOVASCULAR: Regular rate and rhythm without noted murmurs ABDOMEN: Soft, non-tender, non-distended with bowel sounds. MUSCULOSKELETAL: No tenderness, deformities, or effusions noted on gross inspection. EXTREMITIES: No cyanosis, clubbing or edema. SKIN: Inspection of the skin reveals no rashes, ulcerations, jaundice, pallor, or petechiae. NEUROLOGIC: Unresponsive. Strength and sensation to light touch were grossly intact x 4. Medications Administered Discontinued Medications Generic Name Dose Route Start Last Admin Trade Name Freq PRN Reason Stop Dose Admin Dextrose 25 gm 07/05/23 00:40 07/05/23 02:35 Dextrose 50 % 25 Gm/50 Ml Syringe IVPUSH 07/05/23 00:41 25 gm ONCE ONE Administration Sodium Chloride 1,000 mls @ 999 mls/hr 07/04/23 23:45 07/05/23 00:12 Ns IV 07/05/23 00:45 999 mls/hr .Q1H1M RAUL Administration Ondansetron HCl 4 mg 07/04/23 22:38 07/04/23 22:45 Ondansetron Hcl 4 Mg/2 Ml Vial IVPUSH 07/04/23 22:39 4 mg ONCE ONE Administration Medical Decision Making Medical Decision Making MDM Narrative: 52-year-old male with history and clinical presentation, DDX: Accidental insulin overdose, ETOH/drug use, infection-anemia INTERVENTION: IV access and D 50 Patient responded well to the D 50 but had episode of vomiting. Patient received 1 L of IV fluids as well as Zofran. I reviewed all other investigations and hematologic indices are negative for leukocytosis there is a left shift and chronically stable thrombocytopenia without anemia. VBG does not demonstrate any respiratory acidosis there is a mild hypercapnia which is likely associated with patient's decrease in responsiveness due to hypoglycemia. Chemistry indices negative for ELLY and liver enzymes are grossly within normal limits all others a slight bump in ALT. There is a noted hypokalemia of 2.8 with normal magnesium level, this was repleted with 60 mEq of potassium chloride orally. Urinalysis negative for UTI or hematuria and UDS negative, ethanol undetectable. Serial point of care glucoses demonstrated initial response to the D50 and then a slight decrease, patient was offered oral intake and was able to tolerate some juice and crackers and maintained a sugar of 100 at approximately 02:00 and continues to maintain 100 at 03:15. At this time I think that patient is stable for discharge to home with strict precautions that have been communicated with the to monitor patient for lethargy and unresponsiveness. Differential Diagnosis Differential Diagnoses: The differential diagnosis associated with the presentation includes Please see the discussion above Admission/Observation Consideration of admission/observation: Escalation of care including admission/observation considered Please see the discussion above Lab Data MDM Lab Attestation statement: I reviewed the patient's lab results. Please see the discussion above 07/04/23 22:41 07/04/23 22:41 Labs: Lab Results 07/04/23 07/04/23 07/04/23 Range/Units 22:22 22:30 22:41 WBC 9.4 (4.8-10.8) X10*3/uL RBC 4.51 L (4.60-5.80) X10*6/uL Hgb 14.4 (14.0-18.0) g/dl Hct 41.8 L (42.0-52.0) % MCV 92.7 (80.0-98.0) fL MCH 31.9 (27.0-33.0) pg MCHC 34.4 (31.0-36.0) g/dl RDW 12.5 (11.0-16.0) % Plt Count 143 L (160-400) X10*3/uL MPV 11.5 (9.4-12.4) fL Immature Gran % (Auto) 0.4 (0.0-0.4) % Neut % (Auto) 82.1 H (45-73) % Lymph % (Auto) 10.0 L (20-40) % [place] % (Auto) 6.7 (2-11) % Eos % (Auto) 0.6 (0-4) % Baso % (Auto) 0.2 (0-2) % Lymph # (Auto) 0.9 L (1.2-4.9) X10*3/uL [place] # (Auto) 0.6 (0.1-1.2) X10*3/uL Eos # (Auto) 0.1 (0.0-0.4) X10*3/uL Baso # (Auto) 0.0 (0.0-0.2) X10*3/uL Abs Immat Gran (auto) 0.04 H (0.00-0.03) X10*3/uL Absolute Neuts (auto) 7.7 (2.0-8.3) x10*3/uL Absolute Nucleated RBC 0.000 (0.0-0.012) X10*3/uL Nucleated RBC % (auto) 0.0 (0.0-0.2) /100WBC VBG pH (7.32-7.43) VBG pCO2 mmHg VBG pO2 mmHg VBG HCO3 (22-26) mmol/L VBG O2 Saturation % VBG Base Excess mmol/L Sodium 140 (135-145) mmol/L Potassium 2.8 L (3.3-5.1) mmol/L Chloride 104 (96-108) mmol/L Carbon Dioxide 24 (22-29) mmol/L Anion Gap 15 (12-20) BUN 20 H (9-16) mg/dL Creatinine 1.15 (0.5-1.4) mg/dL Estim Creat Clear Calc 70.8 Estimated GFR > 60 POC Glucose 24 L* 198 H (60-115) mg/dL Random Glucose 231 H (60-115) mg/dL Calcium 8.9 (8.4-10.2) mg/dL Magnesium 2.2 (1.6-2.6) mg/dL Total Bilirubin 0.4 (0.0-1.0) mg/dL AST 30 (5-37) U/L ALT 50 H (0-40) U/L Alkaline Phosphatase 65 (39-117) U/L Total Protein 7.3 (6.5-8.0) g/dL Albumin 4.2 (3.5-5.0) g/dL Urine Color Urine Appearance Urine pH (5.0-9.0) Ur Specific [place] (1.005-1.025) Urine Protein (Neg-Trace) mg/dL Urine Glucose (UA) (Negative) mg/dL Urine Ketones (Negative) mg/dL Urine Blood (Negative) Urine Nitrite (Negative) Ur Leukocyte Esterase (Negative) Urine RBC (0-2) /HPF Urine WBC (0-5) /HPF Ur Squamous Epith Cells (0-2) /HPF Urine Bacteria (None Seen) Hyaline Casts (0-2) /LPF Urine Opiates Screen (Not Detect) Urine Fentanyl Screen (Not Detect) Ur Barbiturates Screen (Not Detect) Ur Phencyclidine Scrn (Not Detect) Ur Amphetamines Screen (Not Detect) U Benzodiazepines Scrn (Not Detect) Urine Cocaine Screen (Not Detect) U Marijuana (THC) Screen (Not Detect) Ethyl Alcohol < 10 mg/dL 07/04/23 07/04/23 07/04/23 Range/Units 22:44 23:03 23:48 WBC (4.8-10.8) X10*3/uL RBC (4.60-5.80) X10*6/uL Hgb (14.0-18.0) g/dl Hct (42.0-52.0) % MCV (80.0-98.0) fL MCH (27.0-33.0) pg MCHC (31.0-36.0) g/dl RDW (11.0-16.0) % Plt Count (160-400) X10*3/uL MPV (9.4-12.4) fL Immature Gran % (Auto) (0.0-0.4) % Neut % (Auto) (45-73) % Lymph % (Auto) (20-40) % [place] % (Auto) (2-11) % Eos % (Auto) (0-4) % Baso % (Auto) (0-2) % Lymph # (Auto) (1.2-4.9) X10*3/uL [place] # (Auto) (0.1-1.2) X10*3/uL Eos # (Auto) (0.0-0.4) X10*3/uL Baso # (Auto) (0.0-0.2) X10*3/uL Abs Immat Gran (auto) (0.00-0.03) X10*3/uL Absolute Neuts (auto) (2.0-8.3) x10*3/uL Absolute Nucleated RBC (0.0-0.012) X10*3/uL Nucleated RBC % (auto) (0.0-0.2) /100WBC VBG pH 7.38 (7.32-7.43) VBG pCO2 49 mmHg VBG pO2 56 mmHg VBG HCO3 29 H (22-26) mmol/L VBG O2 Saturation 83.0 % VBG Base Excess 3.7 mmol/L Sodium (135-145) mmol/L Potassium (3.3-5.1) mmol/L Chloride (96-108) mmol/L Carbon Dioxide (22-29) mmol/L Anion Gap (12-20) BUN (9-16) mg/dL Creatinine (0.5-1.4) mg/dL Estim Creat Clear Calc Estimated GFR POC Glucose 135 H 87 (60-115) mg/dL Random Glucose (60-115) mg/dL Calcium (8.4-10.2) mg/dL Magnesium (1.6-2.6) mg/dL Total Bilirubin (0.0-1.0) mg/dL AST (5-37) U/L ALT (0-40) U/L Alkaline Phosphatase (39-117) U/L Total Protein (6.5-8.0) g/dL Albumin (3.5-5.0) g/dL Urine Color Urine Appearance Urine pH (5.0-9.0) Ur Specific [place] (1.005-1.025) Urine Protein (Neg-Trace) mg/dL Urine Glucose (UA) (Negative) mg/dL Urine Ketones (Negative) mg/dL Urine Blood (Negative) Urine Nitrite (Negative) Ur Leukocyte Esterase (Negative) Urine RBC (0-2) /HPF Urine WBC (0-5) /HPF Ur Squamous Epith Cells (0-2) /HPF Urine Bacteria (None Seen) Hyaline Casts (0-2) /LPF Urine Opiates Screen (Not Detect) Urine Fentanyl Screen (Not Detect) Ur Barbiturates Screen (Not Detect) Ur Phencyclidine Scrn (Not Detect) Ur Amphetamines Screen (Not Detect) U Benzodiazepines Scrn (Not Detect) Urine Cocaine Screen (Not Detect) U Marijuana (THC) Screen (Not Detect) Ethyl Alcohol mg/dL 07/05/23 07/05/23 07/05/23 Range/Units 00:38 01:11 01:56 WBC (4.8-10.8) X10*3/uL RBC (4.60-5.80) X10*6/uL Hgb (14.0-18.0) g/dl Hct (42.0-52.0) % MCV (80.0-98.0) fL MCH (27.0-33.0) pg MCHC (31.0-36.0) g/dl RDW (11.0-16.0) % Plt Count (160-400) X10*3/uL MPV (9.4-12.4) fL Immature Gran % (Auto) (0.0-0.4) % Neut % (Auto) (45-73) % Lymph % (Auto) (20-40) % [place] % (Auto) (2-11) % Eos % (Auto) (0-4) % Baso % (Auto) (0-2) % Lymph # (Auto) (1.2-4.9) X10*3/uL [place] # (Auto) (0.1-1.2) X10*3/uL Eos # (Auto) (0.0-0.4) X10*3/uL Baso # (Auto) (0.0-0.2) X10*3/uL Abs Immat Gran (auto) (0.00-0.03) X10*3/uL Absolute Neuts (auto) (2.0-8.3) x10*3/uL Absolute Nucleated RBC (0.0-0.012) X10*3/uL Nucleated RBC % (auto) (0.0-0.2) /100WBC VBG pH (7.32-7.43) VBG pCO2 mmHg VBG pO2 mmHg VBG HCO3 (22-26) mmol/L VBG O2 Saturation % VBG Base Excess mmol/L Sodium (135-145) mmol/L Potassium (3.3-5.1) mmol/L Chloride (96-108) mmol/L Carbon Dioxide (22-29) mmol/L Anion Gap (12-20) BUN (9-16) mg/dL Creatinine (0.5-1.4) mg/dL Estim Creat Clear Calc Estimated GFR POC Glucose 61 73 100 (60-115) mg/dL Random Glucose (60-115) mg/dL Calcium (8.4-10.2) mg/dL Magnesium (1.6-2.6) mg/dL Total Bilirubin (0.0-1.0) mg/dL AST (5-37) U/L ALT (0-40) U/L Alkaline Phosphatase (39-117) U/L Total Protein (6.5-8.0) g/dL Albumin (3.5-5.0) g/dL Urine Color Urine Appearance Urine pH (5.0-9.0) Ur Specific [place] (1.005-1.025) Urine Protein (Neg-Trace) mg/dL Urine Glucose (UA) (Negative) mg/dL Urine Ketones (Negative) mg/dL Urine Blood (Negative) Urine Nitrite (Negative) Ur Leukocyte Esterase (Negative) Urine RBC (0-2) /HPF Urine WBC (0-5) /HPF Ur Squamous Epith Cells (0-2) /HPF Urine Bacteria (None Seen) Hyaline Casts (0-2) /LPF Urine Opiates Screen (Not Detect) Urine Fentanyl Screen (Not Detect) Ur Barbiturates Screen (Not Detect) Ur Phencyclidine Scrn (Not Detect) Ur Amphetamines Screen (Not Detect) U Benzodiazepines Scrn (Not Detect) Urine Cocaine Screen (Not Detect) U Marijuana (THC) Screen (Not Detect) Ethyl Alcohol mg/dL 07/05/23 07/05/23 Range/Units 02:15 03:15 WBC (4.8-10.8) X10*3/uL RBC (4.60-5.80) X10*6/uL Hgb (14.0-18.0) g/dl Hct (42.0-52.0) % MCV (80.0-98.0) fL MCH (27.0-33.0) pg MCHC (31.0-36.0) g/dl RDW (11.0-16.0) % Plt Count (160-400) X10*3/uL MPV (9.4-12.4) fL Immature Gran % (Auto) (0.0-0.4) % Neut % (Auto) (45-73) % Lymph % (Auto) (20-40) % [place] % (Auto) (2-11) % Eos % (Auto) (0-4) % Baso % (Auto) (0-2) % Lymph # (Auto) (1.2-4.9) X10*3/uL [place] # (Auto) (0.1-1.2) X10*3/uL Eos # (Auto) (0.0-0.4) X10*3/uL Baso # (Auto) (0.0-0.2) X10*3/uL Abs Immat Gran (auto) (0.00-0.03) X10*3/uL Absolute Neuts (auto) (2.0-8.3) x10*3/uL Absolute Nucleated RBC (0.0-0.012) X10*3/uL Nucleated RBC % (auto) (0.0-0.2) /100WBC VBG pH (7.32-7.43) VBG pCO2 mmHg VBG pO2 mmHg VBG HCO3 (22-26) mmol/L VBG O2 Saturation % VBG Base Excess mmol/L Sodium (135-145) mmol/L Potassium (3.3-5.1) mmol/L Chloride (96-108) mmol/L Carbon Dioxide (22-29) mmol/L Anion Gap (12-20) BUN (9-16) mg/dL Creatinine (0.5-1.4) mg/dL Estim Creat Clear Calc Estimated GFR POC Glucose 100 (60-115) mg/dL Random Glucose (60-115) mg/dL Calcium (8.4-10.2) mg/dL Magnesium (1.6-2.6) mg/dL Total Bilirubin (0.0-1.0) mg/dL AST (5-37) U/L ALT (0-40) U/L Alkaline Phosphatase (39-117) U/L Total Protein (6.5-8.0) g/dL Albumin (3.5-5.0) g/dL Urine Color Yellow Urine Appearance Clear Urine pH 6.0 (5.0-9.0) Ur Specific [place] 1.020 (1.005-1.025) Urine Protein Negative (Neg-Trace) mg/dL Urine Glucose (UA) >=1000 H (Negative) mg/dL Urine Ketones Negative (Negative) mg/dL Urine Blood Negative (Negative) Urine Nitrite Negative (Negative) Ur Leukocyte Esterase Negative (Negative) Urine RBC 0-2 (0-2) /HPF Urine WBC 0-5 (0-5) /HPF Ur Squamous Epith Cells 0-2 (0-2) /HPF Urine Bacteria None Seen (None Seen) Hyaline Casts 0-2 (0-2) /LPF Urine Opiates Screen Not Detected (Not Detect) Urine Fentanyl Screen Not Detected (Not Detect) Ur Barbiturates Screen Not Detected (Not Detect) Ur Phencyclidine Scrn Not Detected (Not Detect) Ur Amphetamines Screen Not Detected (Not Detect) U Benzodiazepines Scrn Not Detected (Not Detect) Urine Cocaine Screen Not Detected (Not Detect) U Marijuana (THC) Screen Not Detected (Not Detect) Ethyl Alcohol mg/dL Independent Interpretation I performed an independent interpretation of an: EKG Interpretation: Normal sinus rhythm, HR-89, RBBB at baseline, no STEMI, KS is within normal limits, QRS-156, QTC -554. External Record Review External record reviewed: Outpatient record, Prior outpatient labs and Prior outpatient radiology Chronic Conditions Patient?s care impacted by: Diabetes Critical Care Time Critical Care Time Critical Care Time: Yes Total Critical Care Time: 60 Attestation: I personally attest to this time spent taking care of the patient. Discharge Plan Discharge Clinical Impression: Accidental overdose of insulin, Hypoglycemia, Hypokalemia Patient Disposition: Home, Self-Care Instructions: Potassium Content of Foods List (ED), Hypokalemia (ED), Hypoglycemia in a Person with Diabetes (ED) Additional Instructions: 1. Reanudar todos los medicamentos caseros seg?n lo recetado. Tenga mucho cuidado al administrar wilkins insulina, ya que hay diferentes tipos y es posible que accidentalmente se haya administrado la insulina incorrecta. 2. Regrese a la braden de emergencias de inmediato si desarrolla m?s episodios de niveles bajos de az?car en la colton. 1. Resume all home medications as prescribed. Please use extreme caution in administering your insulin as there are different types and you may have accidentally given your self the wrong insulin. 2. Please return to the emergency room immediately if he developed any further episodes low blood sugar. Prescriptions: No Action dicyclomine 20 mg tablet 20 mg PO TID PRN (Reason: abdominal pain) Qty: 20 0RF lorazepam [Ativan] 1 mg tablet 1 mg PO BEDTIME PRN (Reason: sleep) Qty: 10 0RF acetaminophen [Tylenol Extra Strength] 500 mg tablet 500 mg PO Q6H PRN (Reason: fever or pain) Qty: 14 0RF lidocaine [Lidoderm] 5 % adhesive patch,medicated 1 patch topical DAILY MDD remove after 12 hours PRN (Reason: pain) Qty: 30 0RF Rx Instructions: leave on most painful area for up to 12 hrs naproxen 500 mg tablet 500 mg PO BID PRN (Reason: pain) 10 Days Qty: 20 0RF cyclobenzaprine 5 mg tablet 5 mg PO Q8H PRN (Reason: pain (scale score 7-10)) 5 Days Qty: 14 0RF Print Language: Mauritian
--- NOTE | 2023-07-04 23:06 | PC.NURSE ---
repeat POC:135
[2023-07-04 23:20] VITALS: TEMP 36.5
[2023-07-05 00:44] VITALS: BP 163/92; PULSE 77; RESP 16; TEMP 34.7; O2SAT 95
[2023-07-05 01:57] VITALS: BP 136/82; PULSE 75; RESP 16; TEMP 36.7; O2SAT 97
[2023-07-05 02:01] LABS: Glucose, Whole Blood 100 mg/dL (60-115)
[2023-07-05 02:21] LABS: Appearance Urine Clear; Color Urine Yellow; Glucose Urine UA >=1000 mg/dL (Negative); Leukocyte Esterase Urine Negative (Negative); Nitrite Urine Negative (Negative); UMIC TRIGGER UACC YES; Urine Blood Negative (Negative); Urine Ketones Negative (Negative); Urine Protein Negative (Neg-Trace)
[2023-07-05 02:25] LABS: Bacteria Urine None Seen (None Seen); Hyaline Casts Urine 0-2 /LPF (0-2); RBC Urine 0-2 /HPF (0-2); Squamous Epithelial Cell Urine 0-2 /HPF (0-2); WBC Urine 0-5 /HPF (0-5)
[2023-07-05 02:32] LABS: Amphetamine Screen Urine Not Detected (Not Detect); Barbiturates, Urine Not Detected (Not Detect); Benzodiazepines Screen Urine Not Detected (Not Detect); Cannabinoid Screen Urine Not Detected (Not Detect); Cocaine Screen Urine Not Detected (Not Detect); Fentanyl, urine Not Detected (Not Detect); Opiate Screen Urine Not Detected (Not Detect); Phencyclidine Screen Urine Not Detected (Not Detect)
== END 2023-07-05 04:40 | disposition home or self-care (01) ==
PROVIDERS: Emergency Provider Student in an Organized Health Care Education/Training Program
DX: E11.641 Type 2 diabetes mellitus with hypoglycemia with coma (principal); E87.6 Hypokalemia; T38.3X1A Poisoning by insulin and oral hypoglycemic [antidiabetic] drugs, accidental (unintentional), initial encounter; Y92.9 Unspecified place or not applicable; Z79.4 Long term (current) use of insulin; Z79.899 Other long term (current) drug therapy
CPT/HCPCS: 36415; 80053; 80307; 81001; 82803; 82947; 83735; 85025; 93005; 96374; 99284; 99285; J2405

== ENCOUNTER 2024-09-27 15:58 | Emergency (ER) | payer OTHER, SELFPAY ==
--- NOTE | ~2024-09-27 | XR_ITS ---
CLINICAL HISTORY: pain 3 view left shoulder Comparison: [place] - SHOULDER LEFT [id number] - 03/10/18 22:56 EDT Findings: Four films were obtained. No acute fracture or dislocation. Mild narrowing of the acromioclavicular joint with no significant degenerative spurring. No erosions. No radiopaque foreign body. IMPRESSION: 1. No acute fracture or dislocation. This document has been electronically signed by: Sherrie Mireles DO on 09/27/2024 17:35:38
[2024-09-27 16:07] VITALS: BP 135/83; PULSE 106; RESP 20; TEMP 35.9; O2SAT 99; BMI 24.3
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
--- NOTE | 2024-09-27 16:10 | ECG_ITS ---
Test Reason : PAIN Blood Pressure : / mmHG Vent. Rate : 102 BPM Atrial Rate : 102 BPM P-R Int : 136 ms QRS Dur : 136 ms QT Int : 378 ms P-R-T Axes : 031 -84 039 degrees QTc Int : 492 ms Sinus tachycardia Left axis deviation Right bundle branch block Possible Lateral infarct , age undetermined Abnormal ECG When compared with ECG of 04-JUL-2023 22:27, Borderline criteria for Lateral infarct are now Present QT has shortened Referred By: Sascha Weaver Electronically Signed By:AYO DE SANTIAGO MD
[2024-09-27 16:31] LABS: MANUAL DIFF FLAG NO
[2024-09-27 16:34] LABS: Basophils Percent Auto 0.3 % (0-2); Eosinophils Absolute Auto 0.1 X10*3/uL (0.0-0.4); Eosinophils Percent Auto 1.5 % (0-4); Hematocrit 45.2 % (42.0-52.0); Hemoglobin 15.8 g/dl (14.0-18.0); Imm Gran Abs Auto 0.03 X10*3/uL (0.00-0.03); Imm Gran Pct Auto 0.4 % (0.0-0.4); Lymphocytes Absolute Auto 0.8 X10*3/uL (1.2-4.9); Lymphocytes Percent Auto 12.4 % (20-40); Mean Corpuscular Hemoglobin 32.2 pg (27.0-33.0); Mean Corpuscular Volume 92.2 fL (80.0-98.0); Mean Platelet Volume 11.5 fL (9.4-12.4); Monocytes Absolute Auto 0.3 X10*3/uL (0.1-1.2); Monocytes Percent Auto 5.1 % (2-11); Neutrophils Absolute Auto 5.4 x10*3/uL (2.0-8.3); Neutrophils Percent Auto 80.3 % (45-73); Platelet Count 150 X10*3/uL (160-400); Red Cell Distribution Width 12.3 % (11.0-16.0); White Blood Count 6.7 X10*3/uL (4.8-10.8)
[2024-09-27 16:51] LABS: Alanine Aminotransferase 82 U/L (0-40); Albumin Level 4.7 g/dL (3.5-5.0); Alkaline Phosphatase 88 U/L (39-117); Anion Gap 14 (12-20); Aspartate Amino Transferase 45 U/L (5-37); Bilirubin Total 0.7 mg/dL (0.0-1.0); Blood Urea Nitrogen 21 mg/dL (9-16); Calcium 9.6 mg/dL (8.4-10.2); Carbon Dioxide 24 mmol/L (22-29); Chloride 105 mmol/L (96-108); Creatinine Clr Calc Pharmacy 54.9; Estimated Glomerular Filt Rate 52; Glucose Random 376 mg/dL (60-115); Lipase 30 U/L (8-78); Potassium 4.2 mmol/L (3.3-5.1); Sodium 139 mmol/L (135-145)
[2024-09-27 16:54] LABS: Troponin-I High Sensitivity < 2.7 ng/L (<3.5-35.0)
[2024-09-27 21:43] VITALS: BP 135/83; PULSE 106; RESP 20; TEMP 35.9; O2SAT 99
== END 2024-09-27 21:44 | disposition home or self-care (01) ==
PROVIDERS: Physician Assistant; Emergency Provider Emergency Medicine Emergency Medical Services; PCP Internal Medicine
DX: M25.512 Pain in left shoulder (principal); R20.0 Anesthesia of skin; R00.0 Tachycardia, unspecified; E11.8 Type 2 diabetes mellitus with unspecified complications; Z79.84 Long term (current) use of oral hypoglycemic drugs; Z79.899 Other long term (current) drug therapy
CPT/HCPCS: 36415; 73030; 80053; 83690; 84484; 85025; 93005; 99283

== ENCOUNTER → 2024-09-27 16:10 | Outpatient (BNV) | payer OTHER, SELFPAY | PROVIDERS: Emergency Provider Emergency Medicine Emergency Medical Services; PCP Internal Medicine; Visit Provider Internal Medicine Cardiovascular Disease | DX: R94.31 Abnormal electrocardiogram [ECG] [EKG] (principal) | CPT/HCPCS: 93010 ==

== ENCOUNTER → 2024-09-27 16:10 | Outpatient (BNV) | payer OTHER, SELFPAY | PROVIDERS: Visit Provider Radiology Diagnostic Radiology | DX: M25.512 Pain in left shoulder (principal) | CPT/HCPCS: 73030 ==